=== PATIENT | female | born 2000 | race Caucasian/White ===

== ENCOUNTER 2019-10-26 14:19 | Emergency (ER) | payer SELFPAY ==
[2019-10-26] VITALS (16 sets, daily range): BP systolic 102–136; BP diastolic 62–97; PULSE 46–84; RESP 14–29; TEMP 36.3; O2SAT 96–100
--- NOTE | 2019-10-26 14:39 | ECG_ITS ---
Measurements Intervals [place] Rate: 47 P: -10 MO: 153 QRS: 52 QRSD: 114 T: 22 QT: 445 QTc: 393 Interpretive Statements SINUS BRADYCARDIA WITH SINUS ARRHYTHMIA INTRAVENTRICULAR CONDUCTION DELAY BASELINE ARTIFACT- I, II, AVR, AVF, V1 ABNORMAL ECG Electronically Signed On 10-26-2019 18:27:54 CDT by Titus Ayala D.O.
--- NOTE | 2019-10-26 14:43 | PC.NURSE ---
Pt states she is having nausea, vomiting, loose stool, abd pain, dizziness, and weakness since this morning. Pt denies fevers. Pt is A&Ox4. Pt HR down to 45 but unsure what her baseline HR is. MD Booth aware.
[2019-10-26 14:45] LABS: Basophils Absolute Auto 0.1 K/mm3 (0.0-0.1); Basophils Percent Auto 0.6 % (0.2-1.2); Eosinophils Percent Auto 0.4 % (0-4.4); Hematocrit 42.3 % (37.0-47.0); Hemoglobin 14.2 g/dL (12.0-15.0); Immature Granulocyte Absolute 0.04 K/mm3 (0.00-0.031); Immature Granulocyte Percent A 0.4 % (0-0.5); Lymphocytes Percent Auto 22.6 % (18.3-44.2); Mean Corpuscular HGB Conc 33.6 g/dl (32-36); Mean Corpuscular Hemoglobin 30.3 pg (26-34); Mean Corpuscular Volume 90.2 fl (80-100); Mean Platelet Volume 9.9 fl (7.4-10.4); Monocytes Absolute Auto 0.4 K/mm3 (0.1-0.6); Neutrophils Absolute Auto 7.3 K/mm3 (1.3-6.7); Platelet Count Result 218 k/mm3 (150-375); Red Blood Count 4.69 M/mm3 (4.2-5.4); Red Cell Distribution Width 12.6 % (11.5-14.5); White Blood Count 10.2 K/mm3 (4.5-10.0)
[2019-10-26 14:53] LABS: Alanine Aminotransferase 33 U/L (4-35); Albumin Level 4.5 g/dL (3.5-5.1); Alkaline Phosphatase 146 U/L (38-126); Aspartate Amino Transferase 30 U/L (14-36); Bilirubin,Total 0.5 mg/dL (0.2-1.3); Blood Urea Nitrogen 15 mg/dL (7-17); Carbon Dioxide 25 mmol/L (22-30); Chloride 106 mmol/L (98-107); Estimated CRCL calculation 152 ml/min; Estimated Glomerular Filt Rate > 60; Glucose 106 mg/dL (65-105); Lipase 331 U/L (23-300); Potassium 3.9 mmol/L (3.4-5.0); Sodium 139 mmol/L (137-145)
[2019-10-26] MEDS: PANTOPRAZOLE SODIUM IV 40 MG VIAL IV PUSH (15:49)
[2019-10-26] MEDS: LACTATED RINGERS 1,000 ML 999 ML IV CONT (15:49)
[2019-10-26] MEDS: ONDANSETRON INJ 4 MG/2 ML VIAL IV PUSH (15:49)
[2019-10-26 16:15] LABS: Add Urine Microscopic? YES; Appearance Urine Clear (Clear); Bilirubin Urine Negative (Negative); Blood Urine 1+ (Negative); Color Urine Yellow (Yellow); Glucose Urine UA Negative (Negative); Ketones Urine Negative (Negative); Leukocyte Esterase Ur Negative LEU/UL (Negative); Mucus Urine Few /lpf; Nitrate Urine Negative (Negative); Protein Urine 2+ mg/dL (Negative); RBC Urine 21-50 /hpf (0-2); Squamous Epithelial Cell Urine Few /hpf (Few); Urobilinogen Urine Negative mg/dL (<2.0); WBC Urine 0-3 /hpf
--- NOTE | 2019-10-26 16:21 | ED.NAVMDI ---
HPI - Nausea/Vomiting/Diarrhea General Chief complaint: Nausea/Vomiting/Diarrhea Stated complaint: nausea/vomiting Time Seen by Provider: 10/26/19 15:19 Source: patient Mode of arrival: ambulatory Limitations: no limitations History of Present Illness HPI Narrative: This patient is a 19 yo who presents for evaluation of nausea and vomiting. PAtient states this morning she woke up with mild mid lower abdominal pain, and then she developed nausea and vomiting. She states she has continued to have multiple episodes of vomiting. She is unable to tolerate PO. She denies diarrhea and she reports having a normal BM today. She denies fever or chills. She states she has weakness and she feels clammy. She also denies sick contacts. Related Data Allergies Allergy/AdvReac Type Severity Reaction Status Date / Time Penicillins Allergy Unknown Unknown Verified 10/26/19 14:23 Review of Systems Review of Systems: All systems reviewed & are unremarkable except as noted in HPI and below Constitutional: Constitutional: Denies chills, Reports fatigue, Denies fever(s) and Denies weakness ENT: Reports dizziness, Denies nasal congestion and Denies sore throat Cardiovascular: Cardiovascular: Denies chest pain Respiratory: Respiratory: Denies cough and Denies dyspnea Gastrointestinal: Gastrointestinal: Reports abdominal pain, Denies diarrhea, Reports nausea and Reports vomiting Genitourinary: Genitourinary: Denies abnormal vaginal bleeding, Denies hematuria, Denies dysuria and Denies vaginal discharge Neurologic: Reports dizziness and Reports weakness PMFSH Past Medical History Medical History (Updated 10/26/19 @ 18:24 by Merline Booth MD) No active medical problems Surgical History Surgical History (Updated 10/26/19 @ 16:41 by Merline Booth MD) History of cholecystectomy Social History Social History Smoking status: Current every day smoker Alcohol intake: current Exam Narrative: Exam Narrative: GENERAL: Well-appearing, well-nourished, and in no acute distress. HEAD: Normocephalic, atraumatic EYES: PERRLA and EOMI, conjunctiva clear without discharge EARS: TM's clear bilaterally without erythema or dullness NOSE: Nares clear, no rhinorrhea or epistaxis THROAT:Mucous membranes moist, Oropharynx normal without erythema, exudate, peritonsillar swelling or fluctuance NECK: Supple, without lymphadenopathy or mass RESPIRATORY: No respiratory distress, Airway patent, Respirations non-labored, Clear to auscultation without rales, rhonchi or wheeze HEART: Regular rate and rhythm. No murmur heard. Normal peripheral pulses. ABDOMEN: Soft, epigastric tenderness, nondistended, normal active bowel sounds. No masses. No rebound or guarding, No organomegaly. EXTREMITIES: No edema, normal strength with full range of motion. SKIN: Warm, dry, normal color without rash NEURO: Alert and oriented x3. CN 2-12 grossly intact. No focal deficits. PSYCH: Normal mood and affect. : Speculum Exam - Cervix: Cervical os closed and Other cervical findings present (bloody mucous) Course Reevaluation(s) Reevaluation #1: Patient states her nausea is much improved. I discussed with patient HCG is low. She states her last normal menstrual cycle was September 03. She [place] she develop 3 days of spotting and since she has been have vaginal bleeding like a normal cycle for 2 weeks. I Discussed she is likely having miscarriage but she will follow up with [facility] for repeat HCg. Date: 10/26/19 Time: 18:11 Consultations Consultation #1: Dr. Cole agrees with having patient to follow up for repeat HCg. Date: 10/26/19 Time: 18:17 Vital Signs Vital signs: Vital Signs Temperature 97.4 F L 10/26/19 14:30 Pulse Rate 46 L 10/26/19 14:30 Respiratory Rate 14 10/26/19 14:30 Blood Pressure 115/62 10/26/19 14:30 Pulse Oximetry 99 10/26/19 14:30 Temperature 97.4 F L 10/26/19 14:30 Pulse Rate 60 10/26/19
[2019-10-26 17:40] LABS: Beta HCG Quantitative 16.54 mIU/ML
== END 2019-10-26 18:34 | disposition home or self-care (01) ==
PROVIDERS: Emergency Provider General Practice
DX: O20.0 Threatened abortion (principal); O21.9 Vomiting of pregnancy, unspecified; Z3A.00 Weeks of gestation of pregnancy not specified
CPT/HCPCS: 36415; 80053; 81001; 81025; 83690; 84702; 85025; 85461; 93005; 96361; 96374; 96375; 99284; C9113; J2405; J7120

== ENCOUNTER 2020-07-13 10:49 | Outpatient (CLI) | payer OTHER, SELFPAY ==
--- NOTE | ~2020-07-13 | US_ITS ---
EXAMINATION: US OB <=14 wk fetus w TV DATE: 07/13/2020 11:38 INDICATION: Uncertain dates. TECHNIQUE: Real-time transabdominal and transvaginal pelvic ultrasound was performed. COMPARISON: None. FINDINGS: TRANSABDOMINAL ULTRASOUND: The uterus measures 8.3 x 4.4 x 5.2 cm. TRANSVAGINAL ULTRASOUND: There is a cyst in the endometrial complex with mean diameter of 3 mm, which may be a gestational sac with estimated gestational age of 4 weeks and 6 days. No yolk sac or pole is identified. The right ovary measures 2.6 x 2.3 x 3.4 cm. The left ovary measures 1.7 x 2.4 x 3.4 cm. There is no free fluid in the pelvis. IMPRESSION: 1. Cyst in the endometrial complex that may be a gestational sac with estimated date of delivery of 03/16/2021. Ectopic and spontaneous are not excluded. Serial beta-hCGs and/or follo w-up ultrasound are recommended. Reviewed, dictated and finalized at location B. TE MIXER IMPRESSION: 1. Cyst in the endometrial complex that may be a gestational sac with estimate d date of delivery of 03/16/2021. Ectopic and spontaneous are not excluded. Serial beta-hCGs and/or follow-up ultrasound are recommended.
== END 2020-07-13 10:50 | disposition home or self-care (01) ==
PROVIDERS: Visit Provider Nurse Practitioner
DX: Z36.87 Encounter for antenatal screening for uncertain dates (principal); Z3A.00 Weeks of gestation of pregnancy not specified
CPT/HCPCS: 76801; 76817

== ENCOUNTER 2020-07-16 15:13 | Outpatient (RCR) | payer OTHER, SELFPAY | END 2020-10-12 23:59 | disposition home or self-care (01) | LOC: ANHLAB 15:13 | PROVIDERS: Visit Provider Obstetrics & Gynecology Gynecology | DX: O26.849 Uterine size-date discrepancy, unspecified trimester (principal); R93.5 Abnormal findings on diagnostic imaging of other abdominal regions, including retroperitoneum; Z3A.00 Weeks of gestation of pregnancy not specified | CPT/HCPCS: 36415; 84702 ==

== ENCOUNTER 2020-07-20 12:38 | Outpatient (CLI) | payer OTHER, SELFPAY ==
--- NOTE | ~2020-07-20 | US_ITS ---
EXAMINATION: US OB <=14 wk fetus w TV DATE: 07/20/2020 13:34 INDICATION: Uncertain dating of during first trimester TECHNIQUE: Real-time pelvic ultrasound utilizing both a transvaginal and transabdominal probe was pe rformed. The interpreting radiologist was not present for the study. COMPARISON: None. FINDINGS: The uterus measures 8.4 x 4.8 x 5.3 cm. There is an intrauterine gestational sac. A yolk sac is iden tified but no definitive pole. The mean sac diameter measures 12 mm, which correlates with an e stimated gestational age of 5 weeks and 6 days. The right ovary measures 3.3 x 2.8 x 3.2 cm. 2.6 x 2.2 x 2.4 cm thick-walled centrally anechoic corpu s luteum cyst in the left ovary. The left ovary measures 3.4 x 2.4 x 1.9 cm. Vascular flow identified at both ovaries on color Doppler. There is trace amount of free fluid in the pelvis. IMPRESSION: 1. Single intrauterine gestational sac with a yolk sac with no discernible pole yet apparent li [place] due to early stage of . 2. Gestational age by ultrasound based upon 12 mm mean sac diameter of 5 weeks 6 day(s) +/- 4 day(s) with ultrasound estimated date of delivery (ABELARDO) of 03/16/2021. Reviewed, dictated and finalized at location B. JACKET COVER MACHINE OPERATOR IMPRESSION: 1. Single intrauterine gestational sac with a yolk sac with no discernible feta l pole yet apparent likely due to early stage of . 2. Gestational age by ultrasound based upon 12 mm mean sac diameter of 5 weeks 6 day(s) +/- 4 day(s) with ultrasound estimated date of delivery (ABELARDO) of 03/16.
== END 2020-07-20 12:39 | disposition home or self-care (01) ==
PROVIDERS: Visit Provider Obstetrics & Gynecology Gynecology
DX: Z34.91 Encounter for supervision of normal pregnancy, unspecified, first trimester (principal); Z3A.01 Less than 8 weeks gestation of pregnancy
CPT/HCPCS: 76801; 76817

== ENCOUNTER 2020-07-29 14:40 | Outpatient (CLI) | payer OTHER, SELFPAY ==
--- NOTE | ~2020-07-29 | US_ITS ---
EXAMINATION: US OB <=14 wk fetus w TV EXAM DATE: 07/29/2020 15:12 INDICATION: Vaginal spotting, 1st trimester bleeding. TECHNIQUE: Pelvic obstetrical transabdominal and transvaginal sonogram was performed by a technyue gibson. There are multiple grayscale and Doppler images available for interpretation. Comparison is made to prior examination from 07/20/2020. FINDINGS: The uterus measures 8.9 x 4.6 x 4.9 cm. Previously seen well defined gestation sac within t he endometrial canal is no longer identified. The endometrium measures 13 mm, within normal limits. S mall amount of heterogeneous material, debris or retained products within the endometrium lower uteri ne segment, region measuring 13 x 6 x 10 mm. Right adnexa: The right ovary is normal in size and morphology. Left adnexa: The left ovary is normal in size and morphology. IMPRESSION: Loss of previously seen gestation sac with small heterogeneous lower uterine segment jewel on likely debris/retained products of conception. Reviewed, dictated and finalized at location B. CLE CHECK IN CLERK IMPRESSION: Loss of previously seen gestation sac with small heterogeneous lowe r uterine segment region likely debris/retained products of conception.
== END 2020-07-29 14:41 | disposition home or self-care (01) ==
PROVIDERS: Visit Provider Obstetrics & Gynecology Gynecology
DX: O26.851 Spotting complicating pregnancy, first trimester (principal); Z3A.00 Weeks of gestation of pregnancy not specified
CPT/HCPCS: 76801; 76817

== ENCOUNTER 2021-01-25 22:28 | Emergency (ER) | payer OTHER, SELFPAY ==
--- NOTE | ~2021-01-25 | XR_ITS ---
EXAMINATION: XR ankle RT min 3V DATE: 01/25/2021 22:47 INDICATION: Right ankle injury. TECHNIQUE: 4 views of right ankle were obtained. COMPARISON: None. FINDINGS: Bone alignment is normal. No fracture. Joint spaces are well maintained. There is ankle sof t tissue swelling. IMPRESSION: 1. No fracture. Reviewed, dictated and finalized at location A. IMPRESSION: 1. No fracture.
[2021-01-25 22:35] VITALS: BP 124/79; PULSE 85; RESP 16; TEMP 36.3; O2SAT 98
--- NOTE | 2021-01-26 02:04 | ED.LOWEXIN ---
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 [employer] Today at work she stepped in a hole She has had pain in her foot and ankle and lower leg since then She has not found to be very swollen or tender to touch, just painful with ambulation Discomfort seems to radiate from her metatarsals through her foot and up the back of her leg Related Data Allergies Allergy/AdvReac Type Severity Reaction Status Date / Time Penicillins Allergy Unknown Unknown Verified 10/26/19 14:23 Review of Systems Musculoskeletal: Musculoskeletal: Reports arthralgias and Denies joint swelling Neurologic: Denies focal weakness and Denies numbness PMFSH Past Medical History Medical History (Updated 01/26/21 @ 02:04 by Reji Alanis MD) No active medical problems Surgical History Surgical History (Updated 10/26/19 @ 16:41 by Merline Booth MD) History of cholecystectomy Social History Social History Smoking status: Current every day smoker Alcohol intake: current Exam Const: General: cooperative and no acute distress Orientation/consciousness: patient oriented x3 (alert) HENMT: Head: normocephalic and atraumatic Neck: Neck: supple and no JVD Resp: Effort & Inspection: normal respiratory effort and not labored Auscultation: other (BS =) Skin: General skin exam: normal color and no rashes or lesions noted Neuro: General: patient oriented x3 (alert) and moves all extremities Speech: normal speech Extrem: General: normal to inspection and no pedal edema Other: Really no tenderness about the ankle, no swelling or effusion, no laxity No calf tenderness and the Achilles is palpably intact No tenderness at the calcaneal insertion of the plantar fascia She does complain of pain when trying to walk on tiptoes Psych: Affect: normal affect Course Vital Signs Vital signs: Vital Signs Temperature 36.3 C L 01/25/21 22:35 Pulse Rate 85 01/25/21 22:35 Respiratory Rate 16 01/25/21 22:35 Blood Pressure 124/79 01/25/21 22:35 Pulse Oximetry 98 01/25/21 22:35 Temperature 36.3 C L 01/25/21 22:35 Pulse Rate 68 01/26/21 02:10 Respiratory Rate 16 01/26/21 02:10 Blood Pressure 120/95 H 01/26/21 02:10 Pulse Oximetry 100 01/26/21 02:10 MDM - Extremity Injury (Lower) Imaging Data Radiologist's impression: ITS Impressions Ankle X-Ray 01/25/21 22:55 IMPRESSION: 1. No fracture. 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
[2021-01-26 02:10] VITALS: BP 120/95; PULSE 68; RESP 16; O2SAT 100
== END 2021-01-26 02:26 | disposition home or self-care (01) ==
PROVIDERS: Emergency Provider Emergency Medicine
DX: S93.401A Sprain of unspecified ligament of right ankle, initial encounter (principal); W18.42XA Slipping, tripping and stumbling without falling due to stepping into hole or opening, initial encounter; F17.210 Nicotine dependence, cigarettes, uncomplicated
CPT/HCPCS: 73610; 99283

== ENCOUNTER 2021-06-06 18:09 | Emergency (ER) | payer OTHER, SELFPAY ==
[2021-06-06 18:25] VITALS: BP 124/63; PULSE 77; RESP 18; TEMP 36.2; O2SAT 99
[2021-06-06 20:30] VITALS: BP 111/62; PULSE 65; RESP 16; TEMP 36.8; O2SAT 100
--- NOTE | 2021-06-06 21:05 | PC.NURSE ---
Pt ambulates with steady gait out of ED, no sign of any kind of distress. No IV.
== END 2021-06-07 02:01 | disposition left against medical advice (07) ==
DX: R10.9 Unspecified abdominal pain (principal)
CPT/HCPCS: 99199

== ENCOUNTER 2021-06-08 19:07 | Emergency (ER) | payer OTHER, SELFPAY ==
[2021-06-08] VITALS (8 sets, daily range): BP systolic 108–143; BP diastolic 63–72; PULSE 82–100; RESP 16; TEMP 36.7; O2SAT 98–100
--- NOTE | ~2021-06-08 | CT_ITS ---
EXAMINATION: CT abdomen pelvis w con DATE: 06/08/2021 23:06 INDICATION: Lower abdominal pain TECHNIQUE: Computed tomography (CT) of the abdomen and pelvis was performed with 100 cc Omnipaque 350 intravenous contrast. The dose-length product was 1152.58 mGy-cm. Automated exposure control and ite rative reconstruction technique were employed. COMPARISON: None. FINDINGS: Lung bases are unremarkable. Heart size normal. No significant pleural or pericardial effus ion. No significant vascular abnormality. No significant lymphadenopathy. The liver, spleen, pancreas, adrenal glands and kidneys are unremarkable. Nonobstructive bowel gas pa ttern. Status post cholecystectomy. No free air or free fluid. There are multiple bilateral dilated p eriuterine veins as well as prominent uterine veins, consistent with pelvic congestion syndrome. No f ree air or free fluid. No acute osseous abnormality. IMPRESSION: 1. Dilated periuterine and uterine veins, consistent with pelvic congestion syndrome. Reviewed, dictated and finalized at location A. IFIED OPTICIAN IMPRESSION: 1. Dilated periuterine and uterine veins, consistent with pelvic congestion syn drome.
[2021-06-08 22:34] LABS: Basophils Percent Auto 0.4 % (0.2-1.2); Eosinophils Absolute Auto 0.2 K/mm3 (0-0.3); Eosinophils Percent Auto 1.5 % (0-4.4); Hematocrit 38.1 % (37.0-47.0); Hemoglobin 12.9 g/dL (12.0-15.0); Immature Granulocyte Absolute 0.03 K/mm3 (0.00-0.031); Immature Granulocyte Percent A 0.3 % (0-0.5); Lymphocytes Absolute Auto 2.99 K/mm3 (0.9-3.2); Mean Corpuscular HGB Conc 33.9 g/dl (32-36); Mean Corpuscular Volume 91.6 fl (80-100); Mean Platelet Volume 10.2 fl (7.4-10.4); Monocytes Absolute Auto 0.8 K/mm3 (0.1-0.6); Monocytes Percent Auto 6.9 % (2.6-8.5); Neutrophils Absolute Auto 7.1 K/mm3 (1.3-6.7); Neutrophils Percent Auto 63.9 % (45.5-73.1); Platelet Count Result 224 k/mm3 (150-375); Red Blood Count 4.16 M/mm3 (4.2-5.4); Red Cell Distribution Width 11.7 % (11.5-14.5); White Blood Count 11.1 K/mm3 (4.5-10.0)
[2021-06-08 22:43] LABS: Add Urine Microscopic? YES; Appearance Urine Cloudy (Clear); Bacteria Urine Trace /hpf; Bilirubin Urine Negative (Negative); Blood Urine 1+ (Negative); Color Urine Yellow (Yellow); Glucose Urine UA Negative (Negative); Ketones Urine Negative (Negative); Leukocyte Esterase Ur Trace LEU/UL (Negative); Mucus Urine Heavy /lpf; Nitrate Urine Negative (Negative); Protein Urine Negative (Negative); Squamous Epithelial Cell Urine Moderate /hpf (Few)
[2021-06-08 22:49] LABS: Alanine Aminotransferase 18 U/L (4-35); Albumin Level 3.8 g/dL (3.5-5.1); Alkaline Phosphatase 76 U/L (38-126); Anion Gap 8 mmol/L (8-16); Aspartate Amino Transferase 19 U/L (14-36); Bilirubin,Total 0.2 mg/dL (0.2-1.3); Blood Urea Nitrogen 16 mg/dL (7-17); Calcium 8.9 mg/dL (8.4-10.2); Carbon Dioxide 24 mmol/L (22-30); Chloride 107 mmol/L (98-107); Estimated CRCL calculation 125 ml/min; Estimated Glomerular Filt Rate > 60; Glucose 93 mg/dL (65-110); Lipase 108 U/L (23-300); Potassium 3.7 mmol/L (3.4-5.0); Sodium 139 mmol/L (137-145)
--- NOTE | 2021-06-08 23:29 | ED.ABDPAIN ---
HPI - Abdominal Pain General Chief Complaint: Abdominal Pain Stated Complaint: abd pain Time Seen by Provider: 06/08/21 21:26 Source: patient Mode of arrival: ambulatory Limitations: no limitations History of Present Illness HPI narrative: 20-year-old with a history of irritable bowel syndrome here with complaints of lower abdominal pain for past few days. Patient states that she was seen at [facility] few days ago was admitted for possible small bowel obstruction and was discharged the next day. Patient also states that she is seeing her primary doctor and was still having lower abdominal pain and she was advised to go to the ER. She presently denies any nausea, vomiting. No vaginal bleeding or discharge. MD elicited complaint: abdominal pain Pertinent past history: none Onset (ago): day(s) (3) Pain Consistency: constant Location: RLQ, LLQ and suprapubic Severity: moderate Quality: aching Migration to: no migration Related Data Allergies Allergy/AdvReac Type Severity Reaction Status Date / Time Penicillins Allergy Severe Swelling Verified 06/08/21 23:01 of Lip/Tongue/Throat Review of Systems Review of Systems: All systems reviewed & are unremarkable except as noted in HPI and below Constitutional: Constitutional: Reports no additional constitutional complaints Eyes: Eyes: Reports no additional eye complaints ENT: Reports system reviewed and no additional complaints, except as documented Cardiovascular: Cardiovascular: Reports no additional cardiovascular complaints Respiratory: Respiratory: Reports no additional respiratory complaints Gastrointestinal: Gastrointestinal: Reports as per HPI Genitourinary: Genitourinary: Reports no additional female genitourinary complaints Musculoskeletal: Musculoskeletal: Reports no additional musculoskeletal complaints [facility] Past Medical History Medical History No active medical problems Surgical History Surgical History History of cholecystectomy Social History Social History Smoking status: Current every day smoker Alcohol intake: current Exam Narrative: GENERAL: Well-appearing, well-nourished, and in no acute distress. HEAD: Normocephalic, atraumatic. EYES: PERRLA and EOMI.. NECK: Supple. CHEST: Clear to auscultation. No respiratory distress. HEART: Regular rate and rhythm. No murmur heard. Normal peripheral pulses. ABDOMEN: Soft, Mild tenderness in the lower abdomen, nondistended, normal active bowel sounds. EXTREMITIES: Normal range of motion. No edema. SKIN: Warm, dry, no rash. NEURO: No focal deficits. Alert and oriented x3. PSYCH: Normal mood and affect. Course Course Emergency Course: Inform patient about her lab work, CT findings. Presently states the pain is very minimal. I advised to follow-up with DESIGN DIRECTOR. Continue ibuprofen for pain. Vital Signs Vital signs: Vital Signs Temperature 36.7 C 06/08/21 19:11 Pulse Rate 100 06/08/21 19:11 Respiratory Rate 16 06/08/21 19:11 Blood Pressure 143/72 H 06/08/21 19:11 Pulse Oximetry 100 06/08/21 19:11 Temperature 36.7 C 06/08/21 19:11 Pulse Rate 82 06/08/21 22:30 Respiratory Rate 16 06/08/21 19:11 Blood Pressure 111/63 06/08/21 22:01 Pulse Oximetry 99 06/08/21 22:30 MDM - Abdominal Pain Lab Data Result diagrams: 06/08/21 22:26 06/08/21 22:26 Labs: Lab Results 06/08/21 06/08/21 06/08/21 Range/Units 22:26 22:26 22:26 WBC 11.1 H (4.5-10.0) K/mm3 RBC 4.16 L (4.2-5.4) M/mm3 Hgb 12.9 (12.0-15.0) g/dL Hct 38.1 (37.0-47.0) % MCV 91.6 (80-100) fl MCH 31.0 (26-34) pg MCHC 33.9 (32-36) g/dl RDW 11.7 (11.5-14.5) % Plt Count 224 (150-375) k/mm3 MPV 10.2 (7.4-10.4) fl Immature Gran % (Auto) 0.3 (
== END 2021-06-08 23:55 | disposition home or self-care (01) ==
PROVIDERS: Emergency Provider Family Medicine
DX: R10.30 Lower abdominal pain, unspecified (principal); F17.210 Nicotine dependence, cigarettes, uncomplicated; Z90.49 Acquired absence of other specified parts of digestive tract
CPT/HCPCS: 36415; 74177; 80053; 81001; 81025; 83690; 85025; 99284; Q9967

== ENCOUNTER 2021-06-10 08:45 | Outpatient (CLI) | payer OTHER, SELFPAY ==
[2021-06-10 09:38] LABS: Beta HCG Quantitative < 2.39 mIU/ML
== END 2021-06-10 08:46 | disposition home or self-care (01) ==
PROVIDERS: PCP Emergency Medicine; Visit Provider Nurse Practitioner
DX: O20.0 Threatened abortion (principal); Z3A.00 Weeks of gestation of pregnancy not specified
CPT/HCPCS: 36415; 84702

== ENCOUNTER 2021-06-16 13:07 | Outpatient (CLI) | payer OTHER, SELFPAY ==
--- NOTE | ~2021-06-16 | US_ITS ---
EXAMINATION: US pelvic complete w TV DATE: 06/16/2021 14:09 INDICATION: Pelvic pain Comparison:Ultrasound dated 07/29/2020 TECHNIQUE: Multiple transabdominal and endovaginal sonographic images of the pelvis performed. FINDINGS: The uterus measures 6.2 x 3.1 x 4.2 cm. The endometrial complex measures 4.5 mm. The right ovary measures 2.4 x 2.3 x 1.2 cm and the left ovary measures 2 x 1.5 x 1.4 cm. There are small follicles in each ovary. Normal doppler signal in both ovaries. There is no free fluid in the pelvis. There are no abnormal masses seen on either side. IMPRESSION: 1. Unremarkable pelvic ultrasound. Reviewed, dictated and finalized at location A. CTOR PERSONAL
== END 2021-06-16 13:08 | disposition home or self-care (01) ==
LOC: ANHIMG 13:08
PROVIDERS: PCP Emergency Medicine; Visit Provider Nurse Practitioner
DX: R10.2 Pelvic and perineal pain (principal)
CPT/HCPCS: 76830; 76856

== ENCOUNTER 2024-06-17 06:46 | Emergency (ER) | payer SELFPAY ==
--- NOTE | ~2024-06-17 | CT_ITS ---
EXAMINATION: CT abdomen pelvis w con DATE: 06/17/2024 08:44 INDICATION: Nausea and vomiting. Epigastric abdominal pain. TECHNIQUE: Computed tomography (CT) of the abdomen and pelvis was performed with 100 mL Omnipaque 350 intravenous contrast. Automated exposure control and iterative reconstruction technique were employe d. The dose-length product was 1449.81 mGy-cm. COMPARISON: CT abdomen and pelvis 06/08/2021 FINDINGS: The visualized portions of the lung bases demonstrate mild atelectasis. No pleural effusion . The heart size is normal. No pericardial effusion. The liver and spleen are normal. There are estevez es of cholecystectomy. The pancreas, adrenal glands, and left kidney are normal. There is a 5 mm cyst in right kidney. There are no dilated loops of bowel. The appendix is normal. There are no pathologi irais enlarged lymph nodes. There is no free intraperitoneal fluid. The left periuterine and left ova trinity veins are enlarged, consistent with pelvic venous insufficiency. There is mild lumbar spondylosi s. IMPRESSION: 1. Pelvic venous insufficiency. Reviewed, dictated and finalized at location A. [facility]
[2024-06-17 06:55] VITALS: BP 122/65; PULSE 61; RESP 18; TEMP 36.4; O2SAT 100
[2024-06-17 07:27] LABS: BEDSIDEPREGUCG Negative (Negative)
[2024-06-17 07:34] LABS: Basophils Absolute Auto 0.1 K/mm3 (0.0-0.1); Basophils Percent Auto 0.4 % (0.2-1.2); Eosinophils Absolute Auto 0.1 K/mm3 (0-0.3); Eosinophils Percent Auto 0.4 % (0-4.4); Hematocrit 42.2 % (37.0-47.0); Hemoglobin 14.9 g/dL (12.0-15.0); Immature Granulocyte Absolute 0.09 K/mm3 (0.00-0.031); Immature Granulocyte Percent A 0.6 % (0-0.5); Lymphocytes Absolute Auto 2.45 K/mm3 (0.9-3.2); Lymphocytes Percent Auto 17.2 % (18.3-44.2); Mean Corpuscular HGB Conc 35.3 g/dl (32-36); Mean Corpuscular Hemoglobin 31.4 pg (26-34); Mean Corpuscular Volume 88.8 fl (80-100); Mean Platelet Volume 9.9 fl (7.4-10.4); Monocytes Absolute Auto 0.8 K/mm3 (0.1-0.6); Monocytes Percent Auto 5.4 % (2.6-8.5); Neutrophils Absolute Auto 10.9 K/mm3 (1.3-6.7); Platelet Count Result 315 k/mm3 (150-375); Red Blood Count 4.75 M/mm3 (4.2-5.4); Red Cell Distribution Width 11.9 % (11.5-14.5); White Blood Count 14.3 K/mm3 (4.5-10.0)
[2024-06-17 07:41] LABS: Add Urine Microscopic? YES; Appearance Urine Clear (Clear); Bacteria Urine Rare /hpf; Bilirubin Urine Negative (Negative); Blood Urine 1+ (Negative); Color Urine Yellow (Yellow); Glucose Urine UA Negative (Negative); Ketones Urine 2+ mg/dL (Negative); Leukocyte Esterase Ur 1+ LEU/UL (Negative); Nitrate Urine Negative (Negative); Non Pathogenic Casts 0-2; Protein Urine Negative (Negative); Specific Grav Ur 1.023 (1.001-1.035); Squamous Epithelial Cell Urine Few /hpf (Few)
[2024-06-17 07:47] LABS: Alanine Aminotransferase 16 U/L (6-35); Alkaline Phosphatase 68 U/L (38-126); Anion Gap 4 mmol/L (4-12); Aspartate Amino Transferase 19 U/L (14-36); Bilirubin,Total 0.8 mg/dL (0.2-1.3); Blood Urea Nitrogen 11 mg/dL (7-17); Calcium 8.9 mg/dL (8.4-10.2); Carbon Dioxide 24 mmol/L (22-30); Chloride 108 mmol/L (98-107); Estimated CRCL calculation 129 ml/min; Estimated Glomerular Filt Rate > 60; Glucose 107 mg/dL (65-110); Lipase 471 U/L (23-300); Potassium 3.3 mmol/L (3.4-5.0); Sodium 136 mmol/L (137-145)
--- NOTE | 2024-06-17 08:25 | ED_ITS ---
HPI - Abdominal Pain General Chief Complaint: Abdominal Pain Stated Complaint: vomiting, abd pain Time Seen by Provider: 06/17/24 07:46 History of Present Illness HPI narrative: 23-year-old female with a past medical history of intermittent abdominal pain and prior cholecystectomy. Patient states she has had multiple abdominal workups including being seen by 2 gastroenterologists with upper and lower endoscopy. She had a CT abdomen pelvis done at [facility] yesterday which was showing gastritis according to the patient. Patient was discharged from their facility but states that she is having difficulty tolerating any p.o. intake. Patient states she has been nauseous and retching since yesterday and having no relief and having worsening abdominal discomfort. Rates her pain 8/10. Patient was dry heaving this morning. Noted diarrhea constipation, no urinary complaints, denies any chance of . Was otherwise in her normal state of health. Related Data Allergies Allergy/AdvReac Type Severity Reaction Status Date / Time Penicillins Allergy Severe Swelling Verified 06/17/24 07:26 of Lip/Tongue/Throat Review of Systems 2 Review of Systems: As reviewed above in HPI [facility] Past Medical History Medical History No active medical problems Surgical History Surgical History History of cholecystectomy Social History Social History Smoking status: Current every day smoker Alcohol intake: current Exam 2 Narrative: GENERAL: [Well-appearing, well-nourished, and in no acute distress.] Emesis basin at bedside, clear vomitus HEAD: [Normocephalic, atraumatic.] EYES: [PERRLA and EOMI.] ENT: Nares clear, no rhinorrhea or epistaxis. Mucous membranes moist. NECK: Supple. CHEST: [Clear to auscultation. No respiratory distress.] HEART: [Regular rate and rhythm]. No murmur heard. [Normal peripheral pulses.] ABDOMEN: [Soft, nondistended], tender to palpation in the epigastrium but no rebound or guarding, no signs of peritonitis EXTREMITIES: Normal range of motion. [No edema.] SKIN: Warm, dry, no rash. NEURO: [No focal deficits]. Alert and oriented [x3.] PSYCH: [Normal mood and affect.] Course Vital Signs Vital signs: Vital Signs Temperature 36.4 C 06/17/24 06:55 Pulse Rate 61 06/17/24 06:55 Respiratory Rate 18 06/17/24 06:55 Blood Pressure 122/65 06/17/24 06:55 Pulse Oximetry 100 06/17/24 06:55 Temperature 36.4 C 06/17/24 06:55 Pulse Rate 76 06/17/24 09:44 Respiratory Rate 15 06/17/24 09:44 Blood Pressure 128/66 06/17/24 09:44 Pulse Oximetry 100 06/17/24 09:44 MDM - Abdominal Pain MDM Narrative Medical decision making narrative: 23-year-old female with history of intermittent abdominal discomfort with previous endoscopy, cholecystectomy, recent visit to [facility] Emergency Department yesterday for same complaint. She was discharged after workup including CT scans. She was given Bentyl and Zofran but she states she is having difficulty tolerating p.o. intake and came here. She is not any acute distress with normal vital signs. No tachycardia, fever, hypoxia. She does have epigastric tenderness with palpation but no overlying skin changes or rebound or guarding or any signs of peritonitis. She is otherwise well- appearing but does have an emesis basin at bedside with clear vomitus. At this time we do not have any records from that facility or her workup yesterday. We did order a CT scan to better delineate her abdominal complaints, she has a previous cholecystectomy which makes me less suspicious for any biliary pathology. CBC, CMP, lipase, urinalysis and test obtained she was treated with a combination medications including Reglan, Benadryl, morphine, Pepcid and a fluid bolus. She will be re-evaluated frequently. Patient is a slight leukocytosis but likely secondary to the vomiting, no anemia. Electrolytes show some slight hypokalemia likely secondary to vomiting but not severe. Normal renal, hepatic and LFTs. Normal glucose. Slightly elevated lipase likely secondary to the vomiting. Urinalysis with contaminated sample, no convincing evidence of urine infection especially with the lack of urinary symptoms. CT abdomen pelvis shows pelvic congestion. I went and re- evaluated the patient who is now feeling much improved, tolerating p.o. intake. I went over the CT scan with her and she is already aware of this diagnosis and has plans with her OBGYN on the 3rd of the new year for IUD placement for hormonal replacement therapy. We went over her laboratory studies and imaging results and given her clinical improvement without any further vomiting in the emergency department she is stable for discharge home at this time. Will be sent home with Reglan as needed for any residual nausea vomiting and she will follow up with regular PCP and OBGYN outpatient. Medical Records Attestation: I reviewed the patient's medical records. Lab Data Attestation: I reviewed the patient's lab results. 06/17/24 07:28 06/17/24 07:28 Labs: Lab Results 06/17/24 06/17/24 Range/Units 07: 07:28 WBC 14.3 H (4.5-10.0) K/mm3 RBC 4.75 (4.2-5.4) M/mm3 Hgb 14.9 (12.0-15.0) g/dL Hct 42.2 (37.0-47.0) % MCV 88.8 (80-100) fl MCH 31.4 (26-34) pg MCHC 35.3 (32-36) g/dl RDW 11.9 (11.5-14.5) % Plt Count 315 (150-375) k/mm3 MPV 9.9 (7.4-10.4) fl Immature Gran % (Auto) 0.6 H (0-0.5) % Neut % (Auto) 76.0 H (45.5-73.1) % Lymph % (Auto) 17.2 L (18.3-44.2) % [place] % (Auto) 5.4 (2.6-8.5) % Eos % (Auto) 0.4 (0-4.4) % Baso % (Auto) 0.4 (0.2-1.2) % Lymph # (Auto) 2.45 (0.9-3.2) K/mm3 [place] # (Auto) 0.8 H (0.1-0.6) K/mm3 Eos # (Auto) 0.1 (0-0.3) K/mm3 Baso # (Auto) 0.1 (0.0-0.1) K/mm3 Abs Immat Gran (auto) 0.09 H (0.00-0.031) K/mm3 Absolute Neuts (auto) 10.9 H (1.3-6.7) K/mm3 Absolute Nucleated RBC 0.000 (0.0-0.012) K/mm3 Nucleated RBC % 0.0 (0.0-0.2) % Sodium 136 L (137-145) mmol/L Potassium 3.3 L (3.4-5.0) mmol/L Chloride 108 H (98-107) mmol/L Carbon Dioxide 24 (22-30) mmol/L Anion Gap 4 (4-12) mmol/L BUN 11 D (7-17) mg/dL Creatinine 0.70 (0.7-1.0) mg/dL Estim Creat Clear Calc 129 ml/min Estimated GFR > 60 (59 - ) Glucose 107 (65-110) mg/dL Calcium 8.9 (8.4-10.2) mg/dL Total Bilirubin 0.8 (0.2-1.3) mg/dL AST 19 (14-36) U/L ALT 16 (6-35) U/L Alkaline Phosphatase 68 (38-126) U/L Total Protein 6.0 L (6.3-8.2) g/dL Albumin 4.0 (3.5-5.1) g/dL Lipase 471 H (23-300) U/L Urine Color Yellow (Yellow) Urine Appearance Clear (Clear) Urine pH 6.0 (5.0-9.0) Ur Specific [place] 1.023 (1.001-1.035) Urine Protein Negative (Negative) mg/dL Urine Glucose (UA) Negative (Negative) mg/dL Urine Ketones 2+ H (Negative) mg/dL Ur Blood (Man) 1+ H (Negative) Urine Nitrate Negative (Negative) Urine Bilirubin Negative (Negative) Urine Urobilinogen 1.0 (<2.0) mg/dL Leukocyte Esterase Rfl 1+ H (Negative) SAPNA/UL Urine RBC 3-5 H (0-2) /hpf Urine WBC 6-10 H (0-3) /hpf Ur Squamous Epith Cells Few (Few) /hpf Urine Bacteria Rare /hpf Urine Casts 0-2 POC Urine HCG, Qual Negative (Negative) Imaging Data Attestation: I personally reviewed and interpreted this imaging study as follows: My impression: Impressions Abdomen/Pelvis CT 06/17/24 08:46 IMPRESSION: 1. Pelvic venous insufficiency. Radiologist's impression: ITS Impressions Abdomen/Pelvis CT 06/17/24 08:46 IMPRESSION: 1. Pelvic venous insufficiency. Discharge Plan Discharge Clinical Impression: Nausea and vomiting, Female pelvic congestion syndrome Patient Disposition: Home, Self-Care Condition: Stable Instructions: Antibiotic Form, Abdominal Pain (ED) Additional Instructions: Follow-up with your PCP and OBGYN. We will send you home with stronger antiemetic therapy. Return with any new or worsening concerns at any time. Patient Language: Solomon Islander Prescriptions: New metoclopramide HCl [Reglan] 10 mg tablet 10 mg PO Q6H PRN (Reason: nausea and vomiting) Qty: 14 0RF No Action ondansetron HCl [Zofran] 4 mg tablet 4 mg PO Q6H PRN (Reason: nausea and vomiting) Qty: 14 0RF famotidine [Pepcid] 20 mg tablet 20 mg PO DAILY Qty: 14 0RF ibuprofen 600 mg tablet 600 mg PO Q6H PRN (Reason: pain) Qty: 20 0RF ibuprofen 600 mg tablet 600 mg PO TID PRN (Reason: pain) Qty: 20 0RF Follow-up/Referrals: Dylon Saavedra MD [Primary Care Provider] - Time of Disposition: 12:07
[2024-06-17] MEDS: LACTATED RINGERS 1,000 ML 999 ML IV CONT (08:27)
[2024-06-17] MEDS: METOCLOPRAMIDE HCL INJ 10 MG/2 ML VIAL IV PUSH (08:28)
[2024-06-17] MEDS: MORPHINE SULFATE (*CRX) 4 MG/ML INJ IV PUSH (08:28)
[2024-06-17] MEDS: diphenhydrAMINE HCl INJ 50 MG/ML VIAL 25 MG IV PUSH (08:28)
[2024-06-17] MEDS: FAMOTIDINE 20 MG/2 ML VIAL IV PUSH (08:28)
[2024-06-17 09:44] VITALS: BP 128/66; PULSE 76; RESP 15; O2SAT 100
[2024-06-17 12:20] VITALS: BP 122/70; PULSE 88; RESP 14; TEMP 36.8; O2SAT 15
== END 2024-06-17 12:20 | disposition home or self-care (01) ==
PROVIDERS: Emergency Provider Student in an Organized Health Care Education/Training Program; PCP Emergency Medicine
DX: N94.89 Other specified conditions associated with female genital organs and menstrual cycle (principal); R11.2 Nausea with vomiting, unspecified; Z90.49 Acquired absence of other specified parts of digestive tract
CPT/HCPCS: 36415; 74177; 80053; 81001; 81025; 83690; 85025; 87086; 96361; 96374; 96375; 99284; J1200; J2270; J2765; J7120; Q9967

== ENCOUNTER 2024-08-25 09:03 | Emergency (ER) | payer BC, SELFPAY ==
--- NOTE | ~2024-08-25 | CT_ITS ---
EXAMINATION: CT abdomen pelvis w con DATE: 08/25/2024 14:14 INDICATION: Abdominal pain TECHNIQUE: Computed tomography (CT) of the abdomen and pelvis was performed with 100 mL Omnipaque-350 intravenous contrast. Automated exposure control and iterative reconstruction technique were employe d. The dose-length product was 1131.79 mGy-cm. COMPARISON: 06/17/2024 FINDINGS: Lung bases are clear. Heart size normal. No pericardial or pleural effusion. Cholecystectomy clips th e gallbladder fossa. Focal hepatic steatosis at the ligamentum teres. Spleen, pancreas, left kidney a nd bilateral adrenal glands are normal. 5 mm low-attenuation cyst at the upper pole of the right kidn ey. Bowels including the appendix are normal. T-shaped IUD in expected position within the normal ant everted uterus. Bladder and bilateral adnexa are unremarkable. No free intraperitoneal gas or fluid. No pathologically enlarged abdominal or pelvic lymphadenopathy. Increased prominence of the bilateral parametrial vessels and left gonadal vein. Bilateral hypoplastic riblets at T12. Transitional L5 seg ment which is sacralized on the left. IMPRESSION: 1. No acute intra-abdominal/pelvic process. 2. IUD in expected position. 3. Persistent increased prominence of the parametrial vessels and left gonadal vein which can be seen with pelvic venous congestion syndrome. Reviewed, dictated and finalized at location B. [employer]
[2024-08-25 09:08] VITALS: BP 105/69; PULSE 74; RESP 18; TEMP 36.4; O2SAT 100
--- OUTSIDE RECORDS SUMMARY | 2024-08-25 09:49 | XMS_ITS | Clinical Summary ---
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 Gender Identity Not on file Sexual Orientation Not on file Plan of Treatment Health Maintenance Due Date Last Done Comments Hepatitis C Virus (HCV) Screening 1998 Human Papillomavirus (HPV) Immunization (1 - 3-dose series) 2013 Hepatitis B Immunization (1 of 3 - 19+ 3-dose series) 2017 Pap Smear 09/26/2019 Influenza Immunization (#1) 2024 03/16/2016 SARS-COV-2 Immunization (2023- season) 2024 Respiratory Syncytial Virus (RSV) Immunization (Adult) (1 - 1-dose 75+ series) 2073 DTaP/Tdap/Td Immunization Discontinued 03/16/2016 TdaP Immunization Completed 03/16/2016 Meningococcal Immunization (ACWY) Aged Out No longer eligible based on patient's age to complete this topic Pneumococcal Immunization Combined Aged Out No longer eligible based on patient's age to complete this topic Rotavirus Immunization Aged Out No lo nger eligible based on patient's age to complete this topic
--- OUTSIDE RECORDS SUMMARY | 2024-08-25 09:49 | XMS_ITS | Clinical Summary ---
Author Organization [facility] [address] - [address] Address [address] [address] Phone Care Team Providers Care Tearer Name Role Phone Unavailable Primary Care Provider Unavailabl e Social History Tobacco Use Types Packs/Day Years Used Date Smoking Tobacco: Never Assessed Comments Unknown Sex and Gender Information Value Date Recorded Sex Assigned at Not on file Legal Sex Female 4:09 PM CDT Gender Identity Not on file Sexual Orientation Not on file Plan of Treatment Health Maintenance Due Date Last Done Comments HPV VACCINES (1 - 3-dose series) 2013 DTAP/TDAP/TD VACCINES (1 - Tdap) 2017 HEPATITIS B VACCINES (1 of 3 - 19+ 3-dose series) 08/2017 CERVICAL CANCER SCREENING 09/26/2019 INFLUENZA VACCINE (#1) 2024
--- OUTSIDE RECORDS SUMMARY | 2024-08-25 09:49 | XMS_ITS | CONTINUITY OF CARE DOCUMENT ---
Author Name jim, jim Address Unknown Organization [facility] Address [address] [place] [address] Phone [phone] Care Team Providers Care Combat Systems Operator Mine Warfare Name Role Phone Asher HO, Cipriano Unavailable Cipriano Sterling MD Unavailable PROBLEMS Condition Status Date Provider Notes Lightheadedness active Cipriano Sterling MD Fatigue active Cipriano Sterling MD Irritable bowel syndrome active Cipriano cazares MD Cardiology examination active Cipriano Sterling MD ENCOUNTERS Date Type Provider Location Encounter Diag nosis - In-person encounter Office Visit Cipriano Sterling MD [facility] Cardiology examinationIrritable bowel syndromeFatigueLightheadedness VITAL SIGNS Date Observation Value Provider Body Mass Index (Ratio) 46.30 kg/m2 Bon Sterling MD blood pressure, diastolic 84 mm[Hg] Luz Elena nkLoglibra blood pressure, systolic 112 mm[Hg] Elvia Wintersoglibra pulse rate 63 /min Tracee Velasquez respiratory rate E&M 20 /min Tracee Velasquez blood pressure, diastolic 84 mm[Hg] Giancarlo Velasquez blood pressure, systolic 112 mm[Hg] She ariel Eva oxygen saturation, oximetry 99 % Tracee Velasquez blood pressure, cuff size large Giancarlo Velasquez weight E&M 274 [lb_av] Tracee Velasquez height E&M 64.5 [in_i] Tracee Velasquez ALLERGIES Allergy Name Onset Date Reaction Criticality Status WELLBUTRIN High Criticality active PENICILLIN High Criticality active HISTORY OF MEDICATION USE Medication Status Instructions Dates Provider Indications Com ments hyoscyamine sulfate 0.125 mg tablet, sublingual active DISSOLVE 1 TABLET UNDER THE TONGUE THREE TIMES DAILY 1 Fernanda Rushing hyoscyamine sulfate 0.125 mg tablet, sublingual completed Place 1 tablet under tongue three times a day 1 - 1 Fernanda Rushing omeprazole 40 mg capsule,delayed release(DR/EC) active Cipriano Sterling MD SOCIAL HISTORY Date Observation Value Provider drug use, illicit, d rug of choice marijuana Cipriano Sterling MD drug use yes Cipriano Sterling MD alcohol use, average drinks per day social Cipriano Sterling MD alcohol use yes Cipriano Sterling MD social history E&M S moking History: Gaby jara is a former smoker. Cipriano Sterling MD social history reviewed E&M revi ewed - no changes required Cipriano Sterling MD smoking status Former smoker Cipriano Sterling MD INSURANCE PROVIDERS Payer name Policy type / Coverage type [place] red libertarian [employer]ICA[employer] Medicaid [id number] ADVANCE DIRECTIVES Name Date DISCUSSED - NO DECISION MADE TREATMENT PLAN Date Name Performer [id number],C,A dded hyosciamine 0.125 mg sublingally as needed for her vasovagal symptoms iCpriano Sterling MD Cardiology:Added hyo sciamine 0.125 mg sublingally as needed for her vasovagal symptoms Cipriano Sterling MD HISTORY OF PROCEDURES Procedure Date Procedure Name Provider Procedure Notes S tatus EKG Cipriano Sterling MD completed
--- NOTE | 2024-08-25 11:24 | ED.ABDPAIN ---
HPI - Abdominal Pain General Chief Complaint: Abdominal Pain Stated Complaint: n/v Time Seen by Provider: 08/25/24 11:12 History of Present Illness HPI narrative: Patient is a 23-year-old female who presents to the ER with nausea, vomiting, and severe abdominal pain. She reports she has always had ?fucked up stomach problems. Patient reports around 1:00 a.m. this morning she started vomiting and pooping stomach acid. She denies any recent sick contacts. Patient endorses daily marijuana use or urinary symptoms. She endorses a history of cholecystectomy and bowel obstruction. Patient denies other symptoms of infection including sore throat, congestion, or headache. Related Data Allergies Allergy/AdvReac Type Severity Reaction Status Date / Time Penicillins Allergy Severe Swelling Verified 06/17/24 07:26 of Lip/Tongue/Throat Review of Systems Review of Systems: All systems reviewed & are unremarkable except as noted in HPI and below PMFSH Past Medical History Medical History No active medical problems Surgical History Surgical History History of cholecystectomy Social History Social History Smoking status: Current every day smoker Alcohol intake: current Course Vital Signs Vital signs: Vital Signs Temperature 36.4 C L 08/25/24 09:08 Pulse Rate 74 08/25/24 09:08 Respiratory Rate 18 08/25/24 09:08 Blood Pressure 105/69 08/25/24 09:08 Pulse Oximetry 100 08/25/24 09:08 Temperature 36.4 C L 08/25/24 09:08 Pulse Rate 60 08/25/24 13:49 Respiratory Rate 20 08/25/24 13:49 Blood Pressure 140/78 08/25/24 13:49 Pulse Oximetry 98 08/25/24 13:49 MDM - Abdominal Pain MDM Narrative Medical decision making narrative: Patient is a 23-year-old female who presents to the ER with nausea, vomiting, and severe abdominal pain. She reports she has always had ?fucked up stomach problems. Patient reports around 1:00 a.m. this morning she started vomiting and pooping stomach acid. She denies any recent sick contacts or urinary symptoms. Patient endorses daily marijuana use. She endorses a history of a cholecystectomy and bowel obstruction. Patient denies other symptoms of infection including sore throat, congestion, or headache. Labs Ordered: CBC, CMP, lipase, urinalysis, UDS Imaging Ordered: CT abdomen pelvis Medications Ordered: Haldol 5 mg IM, Pepcid 20 mg IV, 1 L normal saline IV bolus, morphine 4 mg IV Results: Pt's CT scan indicates 1. No acute intra-abdominal/pelvic process. 2. IUD in expected position. 3. Persistent increased prominence of the parametrial vessels and left gonadal vein which can be seen with pelvic venous congestion syndrome. Diagnosis: cannabinoid hyperemesis syndrome Patient Education/Shared MDM: Results shared with patient. She endorses improvement following medication administration. Patient strongly advised to maintain hydration status upon discharge and follow-up with her PCP as soon as possible. She will be discharged home with prescriptions for Reglan and Bentyl, per her request. Strict return precautions provided. Patient verbalized understanding is in agreement with plan. Vital signs stable at time of discharge. All questions answered. 1330- Pt is no longer dry-heaving, but she endorses continued abdominal pain. Differential Diagnosis Differential diagnosis: Likely abdominal pain, acute appendicitis, calculus of kidney, constipation, diverticulitis, gastroenteritis, pancreatitis, small bowel obstruction and other (cannabinoid hyperemesis syndrome) Lab Data Attestation: I reviewed the patient's lab results. 08/25/24 13:19 08/25/24 13:19 Labs: Lab Results 08/25/24 08/25/24 08/25/24 Range/Units 13:19 13:23 13:43 WBC 13.1 H (4.5-10.0) K/mm3 RBC 4.27 (4.2-5.4) M/mm3 Hgb 13.4 (12.0-15.0) g/dL Hct 38.6 (37.0-47.0) % MCV 90.4 (80-100) fl MCH 31.4 (26-34) pg MCHC 34.7 (32-36) g/dl RDW 11.9 (11.5-14.5) % Plt Count 235 (150-375) k/mm3 MPV 10.1 (7.4-10.4) fl Immature Gran % (Auto) 0.5 (0-0.5) % Neut % (Auto) 90.9 H (45.5-73.1) % Lymph % (Auto) 6.0 L (18.3-44.2) % [place] % (Auto) 2.2 L (2.6-8.5) % Eos % (Auto) 0.1 (0-4.4) % Baso % (Auto) 0.3 (0.2-1.2) % Lymph # (Auto) 0.79 L (0.9-3.2) K/mm3 [place] # (Auto) 0.3 (0.1-0.6) K/mm3 Eos # (Auto) 0.0 (0-0.3) K/mm3 Baso # (Auto) 0.0 (0.0-0.1) K/mm3 Abs Immat Gran (auto) 0.06 H (0.00-0.031) K/mm3 Absolute Neuts (auto) 12.0 H (1.3-6.7) K/mm3 Absolute Nucleated RBC 0.000 (0.0-0.012) K/mm3 Nucleated RBC % 0.0 (0.0-0.2) % Sodium 140 (137-145) mmol/L Potassium 3.7 (3.4-5.0) mmol/L Chloride 108 H (98-107) mmol/L Carbon Dioxide 20 L (22-30) mmol/L Anion Gap 12 (4-12) mmol/L BUN 13 (7-17) mg/dL Creatinine 0.55 L (0.7-1.0) mg/dL Estim Creat Clear Calc 155 ml/min Estimated GFR > 60 (59 - ) Glucose 119 H (65-110) mg/dL Calcium 9.1 (8.4-10.2) mg/dL Total Bilirubin 0.5 (0.2-1.3) mg/dL AST 16 (14-36) U/L ALT 16 (6-35) U/L Alkaline Phosphatase 65 (38-126) U/L Total Protein 7.0 (6.3-8.2) g/dL Albumin 4.2 (3.5-5.1) g/dL Lipase 44 (23-300) U/L Urine Color Yellow (Yellow) Urine Appearance Cloudy H (Clear) Urine pH 5.5 (5.0-9.0) Ur Specific [place] 1.038 H (1.001-1.035) Urine Protein 1+ H (Negative) mg/dL Urine Glucose (UA) Negative (Negative) mg/dL Urine Ketones 4+ H (Negative) mg/dL Ur Blood (Man) 1+ H (Negative) Urine Nitrate Negative (Negative) Urine Bilirubin Negative (Negative) Urine Urobilinogen 1.0 (<2.0) mg/dL Add Ur Microanalysis Reviewed Leukocyte Esterase Rfl Negative (Negative) SAPNA/UL Urine RBC 0-2 (0-2) /hpf Urine WBC 0-5 (0-3) /hpf Ur Squamous Epith Cells Few (Few) /hpf Urine Bacteria Rare /hpf Urine Casts 0-2 Urine Mucus Present /lpf POC Urine HCG, Qual Negative (Negative) Urine Opiates Screen Negative (Negative) Urine Methadone Screen Negative (Negative) Ur Barbiturates Screen Negative (Negative) Ur Phencyclidine Scrn Negative (Negative) Ur Amphetamine Screen Negative (Negative) U Benzodiazepines Scrn Negative (Negative) Urine Cocaine Screen Negative (Negative) U Cannabinoids Screen Positive A (Negative) Imaging Data Attestation: I personally reviewed and interpreted this imaging study as follows: Radiologist's impression: ITS Impressions Abdomen/Pelvis CT 08/25/24 14:15 IMPRESSION: 1. No acute intra-abdominal/pelvic process. 2. IUD in expected position. 3. Persistent increased prominence of the parametrial vessels and left gonadal vein which can be seen with pelvic venous congestion syndrome. Discharge Plan Discharge Clinical Impression: Abdominal pain, Cannabinoid hyperemesis syndrome, Nausea & vomiting, Dehydration, mild Patient Disposition: Home, Self-Care Condition: Stable Instructions: Antibiotic Form, Cannabis Use Disorder (ED), Abdominal Pain (ED) Patient Language: Maltese Prescriptions: New metoclopramide HCl [Reglan] 10 mg tablet 10 mg PO Q6H PRN (Reason: nausea and vomiting) Qty: 20 0RF dicyclomine 10 mg capsule 10 mg PO TID Qty: 20 0RF No Action ondansetron HCl [Zofran] 4 mg tablet 4 mg PO Q6H PRN (Reason: nausea and vomiting) Qty: 14 0RF famotidine [Pepcid] 20 mg tablet 20 mg PO DAILY Qty: 14 0RF metoclopramide HCl [Reglan] 10 mg tablet 10 mg PO Q6H PRN (Reason: nausea and vomiting) Qty: 14 0RF ibuprofen 600 mg tablet 600 mg PO Q6H PRN (Reason: pain) Qty: 20 0RF ibuprofen 600 mg tablet 600 mg PO TID PRN (Reason: pain) Qty: 20 0RF Follow-up/Referrals: Dylon Saavedra MD [Primary Care Provider] - Time of Disposition: 16:56
[2024-08-25] MEDS: HALOPERIDOL LACTATE 5 MG/ML VIAL IM (11:38)
[2024-08-25] MEDS: SODIUM CHLORIDE 0.9% IV 1,000 ML 999 ML IV CONT (13:08)
[2024-08-25] MEDS: FAMOTIDINE 20 MG/2 ML VIAL IV PUSH (13:09)
--- OUTSIDE RECORDS SUMMARY | 2024-08-25 13:14 | XMS_ITS | Clinical Summary ---
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
--- OUTSIDE RECORDS SUMMARY | 2024-08-25 13:14 | XMS_ITS | Clinical Summary ---
Author Organization [facility] [address] - [address] Address [address] [address] Phone Care Team Providers Care Physician Neonatology Name Role Phone Unavailable Primary Care Provider [...]
--- OUTSIDE RECORDS SUMMARY | 2024-08-25 13:14 | XMS_ITS | CONTINUITY OF CARE DOCUMENT ---
Author Name jim, jim Address Unknown Organization [facility] Address [address] [place] [address] Phone [phone] Care Team Providers Care Insulator Helper Name Role Phone Cipriano Sterling MD Unavailable Cipriano Sterling MD Unavailable [phone] PROBLEMS Condition Status Date Provider Notes Cardiology examination active Cipriano Sterling MD Irritable bowel syndrome active Cipriano cazares MD Fatigue active Cipriano Sterling MD Lightheadedness active Cipriano Sterling MD ENCOUNTERS Date Type Provider Location Encounter Diag nosis - In-person encounter Office Visit Cipriano Sterling MD [place] [facility] Cardiology examinationIrritable bowel syndromeFatigueLightheadedness VITAL SIGNS Date Observation Value Provider Body Mass Index (Ratio) 46.30 kg/m2 Bon Sterling MD blood pressure, diastolic 84 mm[Hg] Luz Elena nkLoglibra blood pressure, systolic 112 mm[Hg] Elvia Cespedes pulse rate 63 /min Tracee Velasquez respiratory [...] Payer name Policy type / Coverage type [place] [employer] party ID [employer] MEDICA[employer] Medicaid [id number] ADVANCE DIRECTIVES Name Date DISCUSSED - NO DECISION MADE TREATMENT PLAN Date Name Performer [id number],C,A dded hyosciamine 0.125 mg sublingally as needed for her vasovagal symptoms Cipriano Sterling MD Cardiology:Added hyo sciamine 0.125 mg sublingally as needed for her vasovagal symptoms Cipriano Sterling MD HISTORY OF PROCEDURES Procedure Date Procedure Name Provider Procedure Notes S tatus EKG Cipriano Sterling MD completed
--- OUTSIDE RECORDS SUMMARY | 2024-08-25 13:14 | XMS_ITS | Continuity of Care Document ---
Author Organization [facility] Address [address] [place] [address] Phone Care Team Providers Care Sox Analyst Name Role Phone Unavailable Unavailable Unavailable Advance Directives Directive Yes / No Effective Date File Name No Information Encounters Encounter Description Practice Location Reason(s) For Visit Diagnoses Date Provider Providers Copied on Encounter [facility], [address], [place], [place], [id number], [place] tel:[phone] [facility] No Information 6 No Information Referring Provider: ASHELY Jean, [address], [place], [address]. tel:[phone] Family History Family Member Type Diagnosis Age At Onset No Information Payers Payer name Insurance type Covered democrat ID Authoriza tikaren(s) [email or web address] [facility] [employer] [facility] [place] [id number] CI [id number] Social History Type Description Quantity Date Captured Comments Sex Female Smoking Status No Information Chief Complaint And Reason For Visit No Information History Of Present Illness Encounter Date Complaint History Of Prese nt Illness No Information Instructions Date Instruction Additional Infor mation No Information Assessments Type Assessment Date No Information
[2024-08-25 13:30] LABS: Basophils Percent Auto 0.3 % (0.2-1.2); Eosinophils Percent Auto 0.1 % (0-4.4); Hematocrit 38.6 % (37.0-47.0); Hemoglobin 13.4 g/dL (12.0-15.0); Immature Granulocyte Absolute 0.06 K/mm3 (0.00-0.031); Immature Granulocyte Percent A 0.5 % (0-0.5); Lymphocytes Absolute Auto 0.79 K/mm3 (0.9-3.2); Mean Corpuscular HGB Conc 34.7 g/dl (32-36); Mean Corpuscular Hemoglobin 31.4 pg (26-34); Mean Corpuscular Volume 90.4 fl (80-100); Mean Platelet Volume 10.1 fl (7.4-10.4); Monocytes Absolute Auto 0.3 K/mm3 (0.1-0.6); Monocytes Percent Auto 2.2 % (2.6-8.5); Neutrophils Percent Auto 90.9 % (45.5-73.1); Platelet Count Result 235 k/mm3 (150-375); Red Blood Count 4.27 M/mm3 (4.2-5.4); Red Cell Distribution Width 11.9 % (11.5-14.5); White Blood Count 13.1 K/mm3 (4.5-10.0)
[2024-08-25 13:39] LABS: Alanine Aminotransferase 16 U/L (6-35); Albumin Level 4.2 g/dL (3.5-5.1); Alkaline Phosphatase 65 U/L (38-126); Anion Gap 12 mmol/L (4-12); Aspartate Amino Transferase 16 U/L (14-36); Bilirubin,Total 0.5 mg/dL (0.2-1.3); Blood Urea Nitrogen 13 mg/dL (7-17); Calcium 9.1 mg/dL (8.4-10.2); Carbon Dioxide 20 mmol/L (22-30); Chloride 108 mmol/L (98-107); Estimated CRCL calculation 155 ml/min; Estimated Glomerular Filt Rate > 60; Glucose 119 mg/dL (65-110); Lipase 44 U/L (23-300); Potassium 3.7 mmol/L (3.4-5.0); Sodium 140 mmol/L (137-145)
[2024-08-25 13:44] LABS: BEDSIDEPREGUCG Negative (Negative)
[2024-08-25] MEDS: MORPHINE SULFATE (*CRX) 4 MG/ML INJ IV PUSH (13:47)
[2024-08-25 13:48] LABS: Add Urine Microscopic? YES; Appearance Urine Cloudy (Clear); Bacteria Urine Rare /hpf; Bilirubin Urine Negative (Negative); Blood Urine 1+ (Negative); Color Urine Yellow (Yellow); Glucose Urine UA Negative (Negative); Ketones Urine 4+ mg/dL (Negative); Leukocyte Esterase Ur Negative LEU/UL (Negative); Mucus Urine Present /lpf; Need Manual Microscopic Reviewed; Nitrate Urine Negative (Negative); Non Pathogenic Casts 0-2; Protein Urine 1+ mg/dL (Negative); RBC Urine 0-2 /hpf (0-2); Specific Grav Ur 1.038 (1.001-1.035); Squamous Epithelial Cell Urine Few /hpf (Few); WBC Urine 0-5 /hpf (0-3); pH Urine 5.5 (5.0-9.0)
[2024-08-25 13:49] VITALS: BP 140/78; PULSE 60; RESP 20; O2SAT 98
[2024-08-25 14:05] LABS: Amphetamine Screen Urine Negative (Negative); Barbiturate Screen Urine Negative (Negative); Benzodiazepines Screen Urine Negative (Negative); Cannabinoid Screen Urine Positive (Negative); Cocaine Screen Urine Negative (Negative); Methadone Screen Urine Negative (Negative); Opiate Screen Urine Negative (Negative); Phencyclidine Screen Urine Negative (Negative)
== END 2024-08-25 17:04 | disposition home or self-care (01) ==
PROVIDERS: Emergency Provider Registered Nurse; PCP Emergency Medicine
DX: R11.2 Nausea with vomiting, unspecified (principal); F12.90 Cannabis use, unspecified, uncomplicated; E86.0 Dehydration; R10.9 Unspecified abdominal pain; F17.200 Nicotine dependence, unspecified, uncomplicated; Z90.49 Acquired absence of other specified parts of digestive tract
CPT/HCPCS: 36415; 74177; 80053; 80307; 81001; 81025; 83690; 85025; 96361; 96372; 96374; 96375; 99284; J1630; J2270; J7030; Q9967